=== PATIENT | male | born 1955 | race Caucasian/White ===

== ENCOUNTER 2016-07-12 05:36 | Inpatient (IN) | payer BC ==
[~2016-07-12] VITALS: Ht 182.9 cm; Wt 176.2 kg
[~2016-07-12 05:36] MED LIST: ALPRAZOLAM1 MG PO; BACLOFEN20 MG PO; CLONAZEPAM1 MG PO; FENTANYL1 EAC5 TD; FLOVENT 22120 INHALA IH; HYDROCODON-ACE1 EAC4 PO; HYDROCODONE/APAP PO; LEXAPRO10 MG PO; LYRICA75 MG PO; MAXAIR AUTOHALE14 GM; METFORMIN HCL1000 MG PO; OMEPRAZOLE40 M1 PO; PAROXETINE HCL20 MG PO; PRILOSEC20 MG PO; PRINZIDE 20-251 EACH PO; XANAX1 MG PO; XOPENEX HF200 INHALA IH; ZESTORETIC 20-1 EAC1 PO
[2016-07-12 06:09] VITALS: BP 115/66
[2016-07-12 06:36] LABS: POINT-OF-CARE METER ID UU14174212
[2016-07-12 09:52] LABS: POINT-OF-CARE METER ID UU13113675; POINT-OF-CARE USER ID 515036437
[2016-07-12 12:35] VITALS: BP 154/90
[2016-07-12 15:35] VITALS: BP 149/88
[2016-07-12 20:03] VITALS: BP 162/88
[2016-07-13] VITALS (7 sets, daily range): BP systolic 129–159; BP diastolic 64–80
[2016-07-13 07:03] LABS: HEMATOCRIT 38.8 % (38.0-50.0); MCHC 32.7 G/DL (30.0-36.0); MCV 91.7 FL (86-99); MEAN PLAT.VOLUME 10.9 uM^3 (9.0-12.4); PLATELET COUNT 176 K/uL (156-360); RBC DIS.WIDTH-CV 12.2 % (11.8-14.6); RBC DIS.WIDTH-SD 40.8 % (39-53); RED BLOOD COUNT 4.23 M/uL (4.00-5.50)
[2016-07-13 07:05] LABS: WHITE BLOOD COUNT 7.2 K/uL (4.1-10.2)
[2016-07-13 07:14] LABS: ANION GAP 9 MEQ/L (2-14); CHLORIDE 99 MEQ/L (99-109); GFR ESTIMATE (CALCULATED) > 59 mL/min/; GLUCOSE 110 mg/dL (70-99); MAGNESIUM 1.4 mg/dl (1.3-2.7); SAMPLE HEMOLYSIS CHECK 0; SAMPLE ICTERIC CHECK 0; SAMPLE LIPEMIA CHECK 0; SODIUM 137 MEQ/L (136-147); UREA NITROGEN (BUN) 10 mg/dL (9-23)
[2016-07-13] MEDS ORDERED: HYDROCODON-ACE1 EAC7 PO (08:34)
[2016-07-13 12:30] LABS: POINT-OF-CARE METER ID UU14162508
[2016-07-13 17:19] LABS: POINT-OF-CARE METER ID UU14162508
[2016-07-14 00:06] VITALS: BP 142/72
[2016-07-14 00:54] LABS: POINT-OF-CARE METER ID UU14162508
[2016-07-14 03:49] VITALS: BP 134/64
[2016-07-14 06:04] LABS: POINT-OF-CARE METER ID UU14162508
[2016-07-14 07:50] VITALS: BP 147/89
[2016-07-14 07:51] LABS: HEMATOCRIT 40.6 % (38.0-50.0); MCH 30.2 PG (29.0-34.0); MCHC 32.8 G/DL (30.0-36.0); MCV 92.1 FL (86-99); MEAN PLAT.VOLUME 11.4 uM^3 (9.0-12.4); PLATELET COUNT 212 K/uL (156-360); RBC DIS.WIDTH-CV 12.3 % (11.8-14.6); RBC DIS.WIDTH-SD 40.9 % (39-53); RED BLOOD COUNT 4.41 M/uL (4.00-5.50); WHITE BLOOD COUNT 7.9 K/uL (4.1-10.2)
[2016-07-14] MEDS ORDERED: PROMETHAZINE HC25 M1 PO (07:57)
[2016-07-14 08:14] LABS: CHLORIDE 105 mEq/L (99-109); POTASSIUM 4.1 mEq/L (3.7-5.4); SODIUM 140 mEq/L (136-147)
[2016-07-14 08:15] LABS: MAGNESIUM 1.7 mg/dL (1.3-2.7)
[2016-07-14 08:17] LABS: GLUCOSE 106 mg/dL (70-99)
[2016-07-14 08:18] LABS: ANION GAP 10 MEQ/L (2-14)
[2016-07-14 08:21] LABS: GFR ESTIMATE (CALCULATED) > 59 mL/min/; UREA NITROGEN (BUN) 12 mg/dL (9-23)
== END 2016-07-14 10:47 | disposition home or self-care (01) | DRG 620 ==
LOC: 2SOUTH 05:36 → 2EAST 12:42 → 2SOUTH 15:23 → 2EAST 07-14 10:47
PROVIDERS: Surgery
PROC: 0DB64Z3 Excision of Stomach, Percutaneous Endoscopic Approach, Vertical (ICD-10-PCS; principal; 2016-07-12)
DX: E66.01 Morbid (severe) obesity due to excess calories (principal); Z68.43 Body mass index [BMI] 50.0-59.9, adult; I10 Essential (primary) hypertension; G47.30 Sleep apnea, unspecified; J45.909 Unspecified asthma, uncomplicated; E11.40 Type 2 diabetes mellitus with diabetic neuropathy, unspecified; Z87.11 Personal history of peptic ulcer disease; N40.0 Benign prostatic hyperplasia without lower urinary tract symptoms; M19.90 Unspecified osteoarthritis, unspecified site; M10.9 Gout, unspecified; F41.9 Anxiety disorder, unspecified; F33.9 Major depressive disorder, recurrent, unspecified; Z79.84 Long term (current) use of oral hypoglycemic drugs; Z88.6 Allergy status to analgesic agent; Z87.442 Personal history of urinary calculi
CPT/HCPCS: 80048; 82948; 83735; 84100; 85027; 94640; 94640 76; 94660; 94799; 99202; J0330; J0690; J1100; J1170; J1644; J1650; J1815; J2250; J2270; J2405; J2550; J2765; J3010; J3480; J7120; Q0169; S0020

== ENCOUNTER 2017-07-02 19:04 | Emergency (ER) | payer BC ==
[~2017-07-02] VITALS: Ht 182.9 cm; Wt 125.9 kg
[~2017-07-02 19:04] MED LIST changes: +HYDROCODON-ACE1 EAC7 PO; +PROMETHAZINE HC25 M1 PO
[2017-07-02 19:55] LABS: HEMATOCRIT 41.6 % (38.0-50.0); HEMOGLOBIN 14.5 G/DL (12.5-16.6); MCH 31.3 PG (29.0-34.0); MCHC 34.9 G/DL (30.0-36.0); MCV 89.8 FL (86-99); PLATELET COUNT 176 K/uL (156-360); RBC DIS.WIDTH-CV 12.7 % (11.8-14.6); RBC DIS.WIDTH-SD 41.3 % (39-53); RED BLOOD COUNT 4.63 M/uL (4.00-5.50); WHITE BLOOD COUNT 7.2 K/uL (4.1-10.2)
[2017-07-02 20:04] LABS: ALBUMIN 4.1 g/dL (3.2-4.8); INTER. NORMALIZED RATIO 1.2
[2017-07-02 20:05] LABS: CHLORIDE 106 mEq/L (99-109); POTASSIUM 3.9 mEq/L (3.7-5.4); SODIUM 143 mEq/L (136-147)
[2017-07-02 20:06] LABS: PTT 28.6 SEC (25-37)
[2017-07-02 20:07] LABS: TOTAL PROTEIN 6.6 g/dL (6.4-8.3)
[2017-07-02 20:09] LABS: GLUCOSE 103 mg/dL (70-99); TOTAL BILIRUBIN 0.8 mg/dL (0.0-1.0)
[2017-07-02 20:10] LABS: ALKALINE PHOSPHATASE 52 IU/L (3-129)
[2017-07-02 20:11] LABS: CREATININE 1.1 mg/dL (0.6-1.3); GFR ESTIMATE (CALCULATED) > 59 mL/min/ (58.99-99999)
[2017-07-02 20:12] LABS: AST (GOT) 15 IU/L (2-34); UREA NITROGEN (BUN) 33 mg/dL (9-23)
[2017-07-02 20:14] LABS: ALT (GPT) 16 IU/L (3-49); LIPASE 25 U/L (1.0-51.0)
[2017-07-02 20:20] LABS: TROP-I INTERPRETATION NEGATIVE; TROPONIN-I < 0.01 ng/mL (0.0-0.30)
[2017-07-02 23:07] LABS: TROP-I INTERPRETATION NEGATIVE; TROPONIN-I < 0.01 ng/mL (0.0-0.30)
[2017-07-02 23:40] VITALS: BP 136/82
== END 2017-07-02 23:45 | disposition home or self-care (01) ==
LOC: EME → EDBD 19:04 → EME 23:45
PROVIDERS: Emergency Medicine
DX: R07.9 Chest pain, unspecified (principal); M47.9 Spondylosis, unspecified; G89.29 Other chronic pain; F41.9 Anxiety disorder, unspecified; Z79.84 Long term (current) use of oral hypoglycemic drugs; G47.30 Sleep apnea, unspecified; Z87.891 Personal history of nicotine dependence
CPT/HCPCS: 71045; 71275; 80053; 83690; 84484; 85027; 85610; 85730; 86850; 86900; 86901; 93005; 99281; 99285; J7030

== ENCOUNTER 2017-09-14 16:01 | Emergency (ER) | payer BC ==
[~2017-09-14] VITALS: Ht 182.9 cm; Wt 124.5 kg
[2017-09-14] MEDS ORDERED: KEFLEX500 MG PO (17:17)
[2017-09-14 17:30] VITALS: BP 142/89
== END 2017-09-14 17:31 | disposition home or self-care (01) ==
LOC: EME 16:01
PROC: 3E0234Z Introduction of Serum, Toxoid and Vaccine into Muscle, Percutaneous Approach (ICD-10-PCS; principal; 2017-09-14)
DX: S91.332A Puncture wound without foreign body, left foot, initial encounter (principal); W45.0XXA Nail entering through skin, initial encounter; Z23 Encounter for immunization; F41.9 Anxiety disorder, unspecified; E11.9 Type 2 diabetes mellitus without complications; Z79.84 Long term (current) use of oral hypoglycemic drugs; G47.30 Sleep apnea, unspecified
CPT/HCPCS: 73630; 99281; 99283